=== PATIENT | female | born 1930 | race Caucasian/White ===

== ENCOUNTER 2016-12-06 08:03 | Outpatient (CLI) | payer MEDICARE ==
[2016-12-06] VITALS (13 sets, daily range): BP systolic 104–153; BP diastolic 39–97; PULSE 51–56; TEMP 98
[~2016-12-06] VITALS: Ht 157.5 cm; Wt 104.5 kg
[~2016-12-06 08:03] MED LIST: CALTRATE-600 W600 MG PO; FERROUS SU325 MG/TAB PO; FOLIC ACID PO; FORTAMET500 MG PO; LANTUS100 U/ML SC; PRAVACHOL 20MG20 MG PO; TYLENOL 500MG500 MG PO; VITAMIN C500 MG PO
[2016-12-06] MEDS ORDERED: COZAAR100 MG PO (08:16)
[2016-12-06] MEDS ORDERED: LIPITOR20 MG PO (08:17)
[2016-12-06] MEDS ORDERED: NEURONTIN600 MG/TAB PO (08:17)
[2016-12-06] MEDS ORDERED: VITAMIN D 50,1.25 MG PO (08:19)
[2016-12-06 08:47] LABS: MEAN CELL VOLUME 88 fl (80.0-100.0); MEAN CORPUSCULAR HGB CONC 31 g/dl (33.0-37.0); MEAN PLATELET VOLUME 9.7 fl (7.4-10.4); PLATELET COUNT 186 K/mm3 (130-400); RED BLOOD COUNT 3.92 M/mm3 (4.10-5.30); REDCELL DISTRIBUTION WIDTH-CV 16.3 % (11.5-14.5); WHITE BLOOD COUNT 5.6 K/mm3 (4.8-10.8)
[2016-12-06 08:55] LABS: HEMATOCRIT 34.4 % (37.0-47.0); HEMOGLOBIN 10.8 g/dl (12.5-16.0); MEAN CORPUSCULAR HEMOGLOBIN 28 pg (27.0-31.0)
[2016-12-06 08:57] LABS: INR 2.4 (0.8-3.0); PROTHROMBIN TIME 27.8 SECONDS (9.7-12.8)
[2016-12-06] MEDS ORDERED: K-DUR20 MEQ PO (08:57)
[2016-12-06] MEDS ORDERED: LASIX 40MG TABL40 MG PO (08:58)
[2016-12-06] MEDS ORDERED: COUMADIN4 MG PO (08:58)
[2016-12-06] MEDS ORDERED: CORDARONE200 MG/TAB PO (08:59)
[2016-12-06] MEDS ORDERED: REQUIP XL8 MG PO (09:00)
[2016-12-06] MEDS ORDERED: ASPIRIN 81M81 MG/TA2 PO (09:01)
[2016-12-06] MEDS ORDERED: CALCIUM 600600 MG PO (09:02)
[2016-12-06 09:05] LABS: CALCIUM 9.6 mg/dL (8.4-10.2); CREATININE, serum 1.35 mg/dL (0.52-1.25); POTASSIUM 4.3 mmol/L (3.4-5.0)
== END 2016-12-06 12:35 | disposition home or self-care (01) ==
LOC: COL.RAD 08:03
PROVIDERS: Internal Medicine Interventional Cardiology
DX: R06.02 Shortness of breath (principal); Z95.2 Presence of prosthetic heart valve
CPT/HCPCS: J2250

== ENCOUNTER 2018-04-28 16:18 | Inpatient (IN) | payer MEDICARE ==
[~2018-04-28] VITALS: Ht 157.5 cm; Wt 97.0 kg
[~2018-04-28 16:18] MED LIST changes: +ASPIRIN 81M81 MG/TA2 PO; +CALCIUM 600600 MG PO; +CORDARONE200 MG/TAB PO; +COUMADIN4 MG PO; +COZAAR100 MG PO; +K-DUR20 MEQ PO; +LASIX 40MG TABL40 MG PO; +LIPITOR20 MG PO; +NEURONTIN600 MG/TAB PO; +REQUIP XL8 MG PO; +VITAMIN D 50,1.25 MG PO
[2018-05-29] VITALS (10 sets, daily range): BP systolic 113–157; BP diastolic 34–53; PULSE 51–63; TEMP 97.5–98.2
[2018-05-29] MEDS ORDERED: AMBIEN 5MG TABLE5 MG PO (03:13)
[2018-05-29] MEDS ORDERED: COUMADIN 3MG3 MG/TAB PO (03:22)
[2018-05-29] MEDS ORDERED: SINEMET CR1 UDTAB.S1 PO (05:21)
[2018-05-29] MEDS ORDERED: TYLENOL 500MG500 MG PO (05:26)
[2018-05-29] MEDS ORDERED: CALCIUM CARBON650 M2 PO (05:26)
[2018-05-29 06:29] LABS: INR 1.4 (0.8-3.0); PROTHROMBIN TIME 16.4 SECONDS (9.7-12.8)
[2018-05-29] MEDS ORDERED: SINEMET 25/101 UDTAB PO (13:12)
[2018-05-30] VITALS (8 sets, daily range): BP systolic 85–164; BP diastolic 31–75; PULSE 51–65; TEMP 97.6–98.5
[2018-05-31 04:16] VITALS: BP 107/35; PULSE 56; TEMP 98.2
[2018-05-31 07:34] VITALS: BP 112/40; PULSE 98; TEMP 97.7
[2018-05-31 11:16] VITALS: BP 98/37; PULSE 55; TEMP 97.9
[2018-05-31 15:58] VITALS: BP 100/40; PULSE 51; TEMP 98.4
[2018-05-31 18:10] VITALS: BP 97/34; PULSE 57
[2018-05-31 19:43] VITALS: BP 100/21; PULSE 69; TEMP 98.2
[2018-06-01 00:18] VITALS: BP 96/52; PULSE 58; TEMP 98.5
[2018-06-01 03:53] VITALS: BP 127/39; PULSE 63; TEMP 98.2
[2018-06-01] MEDS ORDERED: NORCO 325 MG-7.1 TAB PO (06:58)
[2018-06-01] MEDS ORDERED: ROXICODONE 55 MG/TAB PO (06:59)
[2018-06-01 08:41] VITALS: BP 137/84; PULSE 63; TEMP 98.1
[2018-06-01 11:45] VITALS: BP 112/59; PULSE 56; TEMP 98.2
== END 2018-06-01 15:04 | DRG 483 ==
LOC: JCC 05-29 05:01
PROVIDERS: Nurse Anesthetist, Certified Registered; Orthopaedic Surgery
PROC: 0RRK00Z Replacement of Left Shoulder Joint with Reverse Ball and Socket Synthetic Substitute, Open Approach (ICD-10-PCS; principal; 2018-05-29 07:30)
DX: M19.012 Primary osteoarthritis, left shoulder (principal); I10 Essential (primary) hypertension; E11.42 Type 2 diabetes mellitus with diabetic polyneuropathy; G20 Parkinson's disease; Z79.4 Long term (current) use of insulin; Z85.828 Personal history of other malignant neoplasm of skin; E11.649 Type 2 diabetes mellitus with hypoglycemia without coma
CPT/HCPCS: A4314; A9284; C1713; C1751; C1776; J0690; J1100; J1815; J2250; J2405; J2704; J2795; J3010